=== PATIENT | male | born 1950 | race Caucasian/White ===

== ENCOUNTER 2020-11-08 06:59 | Outpatient (CLI) | payer MEDICARE, SELFPAY ==
--- NOTE | ~2020-11-08 | XR_ITS ---
EXAMINATION: XR lumbar spine 6V w bending EXAM DATE: 11/08/2020 07:35 INDICATION: lumbago pain started 6 days ago no prev back problems. TECHNIQUE: Lumber spine frontal, lateral, bilateral oblique projections. Coned down frontal and lat eral L5-S1 lumbar projections for interpretation. There is no prior study for comparison. FINDINGS: Vertebral bodies are aligned on all the lateral projections. Small to moderate-sized bridgi ng endplate osteophytes. Mild diffuse thoracolumbar disc disease. Vertebral body heights relatively w ell-maintained. Moderate lumbar facet arthropathy. No spondylolysis suspected. There are no acute fra ctures identified. Mild aortic arteriosclerosis. Sacrum, sacroiliac joints, sacral arcuate lines are intact. Paraspinal soft tissue is unremarkable. IMPRESSION: Moderate lumbar facet arthropathy. Mild disc disease. Reviewed, dictated and finalized at location A.
== END 2020-11-08 07:00 | disposition home or self-care (01) ==
PROVIDERS: PCP Physician Assistant; Visit Provider Nurse Practitioner Family
DX: M54.5 Low back pain (principal); M51.36 Other intervertebral disc degeneration, lumbar region
CPT/HCPCS: 72114

== ENCOUNTER 2021-08-13 06:55 | Outpatient (CLI) | payer OTHER, SELFPAY ==
[2021-08-13 07:44] LABS: Add Urine Microscopic? YES; Appearance Urine Clear (Clear); Bilirubin Urine Negative (Negative); Blood Urine Negative (Negative); Color Urine Yellow (Yellow); Glucose Urine UA 3+ mg/dL (Negative); Ketones Urine Trace mg/dL (Negative); Leukocyte Esterase Ur Negative LEU/UL (NEGATIVE); Nitrate Urine Negative (Negative); Protein Urine Negative (Negative); RBC Urine 0-2 /hpf (0-2); Urobilinogen Urine Negative mg/dL (<2.0); WBC Urine 0-3 /hpf (0-3)
[2021-08-13 07:48] LABS: Alanine Aminotransferase 30 U/L (4-50); Albumin Level 4.7 g/dL (3.5-5.1); Alkaline Phosphatase 56 U/L (38-126); Anion Gap 9 mmol/L (8-16); Aspartate Amino Transferase 27 U/L (17-59); Bilirubin,Total 0.9 mg/dL (0.2-1.3); Blood Urea Nitrogen 20 mg/dL (9-20); Calcium 9.3 mg/dL (8.4-10.2); Carbon Dioxide 25 mmol/L (22-30); Chloride 106 mmol/L (98-107); Cholesterol 141 mg/dL (0-200); Estimated Glomerular Filt Rate > 60; Glucose 158 mg/dL (65-110); HDL Direct 38 mg/dL; Potassium 4.4 mmol/L (3.4-5.0); Sodium 140 mmol/L (137-145); Triglycerides 178 mg/dL (<150)
[2021-08-13 07:52] LABS: Specific Grav Ur 1.031 (1.001-1.035)
[2021-08-13 08:00] LABS: LDL Cholesterol Direct 72 mg/dL
[2021-08-13 08:13] LABS: Creatinine Urine 98.3 mg/dL
[2021-08-13 08:18] LABS: Microalbumin Urine Random 38.3 mg/L (0-16.7)
[2021-08-13 08:18] LABS: Prostate Specific Antigen 0.6 ng/mL (< OR = 4.0)
[2021-08-13 08:25] LABS: Hemoglobin A1C 6.6 % (<5.7)
[2021-08-13 08:54] LABS: Folic Acid 8.6 ng/mL (2.76->20)
== END 2021-08-13 06:56 | disposition home or self-care (01) ==
PROVIDERS: PCP Nurse Practitioner Family; Visit Provider Nurse Practitioner Family
DX: E11.65 Type 2 diabetes mellitus with hyperglycemia (principal); I10 Essential (primary) hypertension; E78.5 Hyperlipidemia, unspecified; R35.1 Nocturia; E11.29 Type 2 diabetes mellitus with other diabetic kidney complication; R80.9 Proteinuria, unspecified
CPT/HCPCS: 36415; 80048; 80061; 80076; 81001; 82043; 82607; 82746; 83036; 84153; 84443

== ENCOUNTER 2021-12-26 07:07 | Outpatient (CLI) | payer OTHER, SELFPAY ==
[2021-12-26 07:56] LABS: Creatinine Urine 93.3 mg/dL
[2021-12-26 07:59] LABS: Anion Gap 8 mmol/L (8-16); Blood Urea Nitrogen 24 mg/dL (9-20); Calcium 8.7 mg/dL (8.4-10.2); Carbon Dioxide 20 mmol/L (22-30); Chloride 111 mmol/L (98-107); Cholesterol 141 mg/dL (0-200); Estimated Glomerular Filt Rate > 60; Glucose 165 mg/dL (65-110); HDL Direct 36 mg/dL; Sodium 139 mmol/L (137-145); Triglycerides 205 mg/dL (<150)
[2021-12-26 08:00] LABS: MALB Creatinine Ratio 35.2 mg/g (0-30); Microalbumin Urine Random 32.8 mg/L (0-16.7)
[2021-12-26 08:00] LABS: Hemoglobin A1C 6.9 % (<5.7)
[2021-12-26 08:11] LABS: LDL Cholesterol Direct 66 mg/dL
== END 2021-12-26 07:08 | disposition home or self-care (01) ==
PROVIDERS: PCP Nurse Practitioner Family; Visit Provider Nurse Practitioner Family
DX: I10 Essential (primary) hypertension (principal); R80.9 Proteinuria, unspecified; E11.9 Type 2 diabetes mellitus without complications; E78.5 Hyperlipidemia, unspecified
CPT/HCPCS: 36415; 80048; 80061; 82043; 83036

== ENCOUNTER 2022-08-18 07:04 | Outpatient (CLI) | payer OTHER, SELFPAY ==
[2022-08-18 07:51] LABS: Appearance Urine Clear (Clear); Bilirubin Urine Negative (Negative); Blood Urine Negative (Negative); Color Urine Yellow (Yellow); Glucose Urine UA 3+ mg/dL (Negative); Ketones Urine Negative (Negative); Leukocyte Esterase Ur Negative LEU/UL (NEGATIVE); Nitrate Urine Negative (Negative); Protein Urine Trace mg/dL (Negative); Urobilinogen Urine 0.2 mg/dL (<2.0); pH Urine 5.5 (5.0-9.0)
[2022-08-18 07:56] LABS: Basophils Percent Auto 0.5 % (0.2-1.2); Eosinophils Absolute Auto 0.1 K/mm3 (0-0.3); Eosinophils Percent Auto 1.9 % (0-4.4); Hematocrit 42.8 % (42.0-52.0); Hemoglobin 14.2 g/dL (14.0-18.0); Immature Granulocyte Absolute 0.01 K/mm3 (0.00-0.031); Immature Granulocyte Percent A 0.2 % (0-0.5); Lymphocytes Absolute Auto 2.52 K/mm3 (0.9-3.2); Lymphocytes Percent Auto 39.6 % (18.3-44.2); Mean Corpuscular HGB Conc 33.2 g/dl (32-36); Mean Corpuscular Volume 87.3 fl (80-100); Mean Platelet Volume 9.5 fl (7.4-10.4); Monocytes Absolute Auto 0.7 K/mm3 (0.1-0.6); Monocytes Percent Auto 10.7 % (2.6-8.5); Neutrophils Percent Auto 47.1 % (45.5-73.1); Platelet Count Result 189 k/mm3 (150-375); Red Cell Distribution Width 13.7 % (11.5-14.5); White Blood Count 6.4 K/mm3 (4.5-10.0)
[2022-08-18 07:59] LABS: Bacteria Urine Trace /hpf; Mucus Urine Rare /lpf; WBC Urine 0-3 /hpf (0-3)
[2022-08-18 08:03] LABS: Add Urine Microscopic? YES; Alanine Aminotransferase 32 U/L (6-50); Albumin Level 4.6 g/dL (3.5-5.1); Alkaline Phosphatase 54 U/L (38-126); Anion Gap 11 mmol/L (8-16); Aspartate Amino Transferase 22 U/L (17-59); Bilirubin,Total 0.7 mg/dL (0.2-1.3); Blood Urea Nitrogen 22 mg/dL (9-20); Carbon Dioxide 22 mmol/L (22-30); Chloride 109 mmol/L (98-107); Cholesterol 145 mg/dL (0-200); Estimated Glomerular Filt Rate > 60; Glucose 160 mg/dL (65-110); HDL Direct 37 mg/dL; Potassium 3.9 mmol/L (3.4-5.0); Sodium 142 mmol/L (137-145); Triglycerides 168 mg/dL (<150); Uric Acid 4.7 mg/dL (3.5-8.5)
[2022-08-18 08:14] LABS: LDL Cholesterol Direct 76 mg/dL
[2022-08-18 08:31] LABS: Creatinine Urine 93.1 mg/dL
[2022-08-18 08:32] LABS: Hemoglobin A1C 7.1 % (<5.7)
[2022-08-18 08:33] LABS: Prostate Specific Antigen 0.7 ng/mL (< OR = 4.0)
[2022-08-18 09:03] LABS: Hepatitis C Virus Antibody Negative (Negative)
[2022-08-18 09:09] LABS: Folic Acid 9.8 ng/mL (2.76->20)
== END 2022-08-18 07:05 | disposition home or self-care (01) ==
LOC: ANHLAB 07:08
PROVIDERS: PCP Nurse Practitioner Family; Visit Provider Nurse Practitioner Family
DX: E78.5 Hyperlipidemia, unspecified (principal); E53.8 Deficiency of other specified B group vitamins; I10 Essential (primary) hypertension; R35.1 Nocturia; Z11.59 Encounter for screening for other viral diseases; E11.9 Type 2 diabetes mellitus without complications
CPT/HCPCS: 36415; 80048; 80061; 80076; 81001; 82043; 82607; 82746; 83036; 84153; 84443; 84550; 85025; 86803

== ENCOUNTER 2023-03-01 08:07 | Outpatient (CLI) | payer OTHER, SELFPAY ==
[2023-03-01 09:18] LABS: Appearance Urine Clear (Clear); Bilirubin Urine Negative (Negative); Blood Urine Negative (Negative); Color Urine Yellow (Yellow); Glucose Urine UA 3+ mg/dL (Negative); Ketones Urine Trace mg/dL (Negative); Leukocyte Esterase Ur Negative LEU/UL (NEGATIVE); Nitrate Urine Negative (Negative); Protein Urine Negative (Negative); Specific Grav Ur 1.033 (1.001-1.035); Urobilinogen Urine 0.2 mg/dL (<2.0)
[2023-03-01 09:21] LABS: Add Urine Microscopic? NO
[2023-03-01 09:31] LABS: Anion Gap 11 mmol/L (8-16); Blood Urea Nitrogen 20 mg/dL (9-20); Carbon Dioxide 22 mmol/L (22-30); Chloride 105 mmol/L (98-107); Cholesterol 147 mg/dL (0-200); Estimated Glomerular Filt Rate > 60; Glucose 140 mg/dL (65-110); HDL Direct 37 mg/dL; Potassium 3.8 mmol/L (3.4-5.0); Sodium 138 mmol/L (137-145); Triglycerides 163 mg/dL (<150)
[2023-03-01 09:34] LABS: Hemoglobin A1C 6.6 % (<5.7)
[2023-03-01 09:41] LABS: LDL Cholesterol Direct 77 mg/dL
[2023-03-01 15:32] LABS: Creatinine Urine 88.5 mg/dL
[2023-03-01 15:37] LABS: MALB Creatinine Ratio 42.9 mg/g (0-30)
== END 2023-03-01 08:08 | disposition home or self-care (01) ==
LOC: ANHLAB 08:08
PROVIDERS: PCP Nurse Practitioner Family; Visit Provider Nurse Practitioner Family
DX: E11.65 Type 2 diabetes mellitus with hyperglycemia (principal); I10 Essential (primary) hypertension; E78.5 Hyperlipidemia, unspecified; E11.29 Type 2 diabetes mellitus with other diabetic kidney complication; R80.9 Proteinuria, unspecified
CPT/HCPCS: 36415; 80048; 80061; 81003; 82043; 83036

== ENCOUNTER 2023-09-13 07:07 | Outpatient (CLI) | payer OTHER, SELFPAY ==
[2023-09-13 08:14] LABS: Alanine Aminotransferase 35 U/L (6-50); Albumin Level 4.4 g/dL (3.5-5.1); Alkaline Phosphatase 54 U/L (38-126); Anion Gap 9 mmol/L (8-16); Aspartate Amino Transferase 25 U/L (17-59); Bilirubin,Total 0.7 mg/dL (0.2-1.3); Blood Urea Nitrogen 23 mg/dL (9-20); Calcium 9.2 mg/dL (8.4-10.2); Carbon Dioxide 24 mmol/L (22-30); Chloride 107 mmol/L (98-107); Cholesterol 151 mg/dL (0-200); Estimated Glomerular Filt Rate > 60; Glucose 164 mg/dL (65-110); HDL Direct 38 mg/dL; Potassium 4.1 mmol/L (3.4-5.0); Sodium 140 mmol/L (137-145); Triglycerides 197 mg/dL (<150)
[2023-09-13 08:29] LABS: LDL Cholesterol Direct 89 mg/dL
[2023-09-13 08:36] LABS: Hemoglobin A1C 7.8 % (<5.7)
== END 2023-09-13 07:08 | disposition home or self-care (01) ==
LOC: ANHLAB 07:10
PROVIDERS: PCP Nurse Practitioner Family; Visit Provider Nurse Practitioner Family
DX: I10 Essential (primary) hypertension (principal); E11.9 Type 2 diabetes mellitus without complications; E78.5 Hyperlipidemia, unspecified; Z12.5 Encounter for screening for malignant neoplasm of prostate; E53.8 Deficiency of other specified B group vitamins
CPT/HCPCS: 36415; 80048; 80061; 80076; 82607; 83036; 84153; 84443; G0103

== ENCOUNTER 2024-03-08 07:15 | Outpatient (CLI) | payer OTHER, SELFPAY ==
[2024-03-08 08:32] LABS: Add Urine Microscopic? NO; Appearance Urine Clear (Clear); Bilirubin Urine Negative (Negative); Blood Urine Negative (Negative); Color Urine Yellow (Yellow); Glucose Urine UA 3+ mg/dL (Negative); Ketones Urine Negative (Negative); Leukocyte Esterase Ur Negative LEU/UL (Negative); Nitrate Urine Negative (Negative); Protein Urine Negative (Negative); Specific Grav Ur 1.031 (1.001-1.035); Urobilinogen Urine 0.2 mg/dL (<2.0)
[2024-03-08 08:44] LABS: Hemoglobin A1C 7.2 % (<5.7)
[2024-03-08 09:06] LABS: MALB Creatinine Ratio 33.7 mg/g (0-30); Microalbumin Urine Random 26.3 mg/L (0-16.7)
[2024-03-08 13:54] LABS: Anion Gap 13 mmol/L (4-12); Blood Urea Nitrogen 23 mg/dL (9-20); Calcium 9.4 mg/dL (8.4-10.2); Carbon Dioxide 19 mmol/L (22-30); Chloride 106 mmol/L (98-107); Cholesterol 142 mg/dL (0-200); Estimated Glomerular Filt Rate > 60; Glucose 150 mg/dL (65-110); HDL Direct 39 mg/dL; Potassium 4.1 mmol/L (3.4-5.0); Sodium 138 mmol/L (137-145); Triglycerides 152 mg/dL (<150)
[2024-03-08 14:05] LABS: LDL Cholesterol Direct 78 mg/dL
== END 2024-03-08 07:16 | disposition home or self-care (01) ==
PROVIDERS: PCP Nurse Practitioner Family; Visit Provider Nurse Practitioner Family
DX: I10 Essential (primary) hypertension (principal); E11.9 Type 2 diabetes mellitus without complications; E78.5 Hyperlipidemia, unspecified
CPT/HCPCS: 36415; 80048; 80061; 81003; 82043; 83036

== ENCOUNTER 2024-09-18 06:57 | Outpatient (CLI) | payer OTHER, SELFPAY ==
--- OUTSIDE RECORDS SUMMARY | 2024-09-18 07:01 | XMS_ITS | Clinical Summary ---
Author Organization [facility] Address [address] [place] [id number] Phone Care Team Providers Care Senior Telecommunications Technician Name Role Phone Marilee Ford MD Primary Care Provider [phone] Allergies No known active allergies Medications Medication Sig Dispensed Refills Start Date End Date Status atorvastatin (LIPITOR) 20 MG tablet Take 20 mg by mouth 1 (one) time each day Active lisinopril (PRINIVIL,ZESTRIL) 10 MG tablet Take 10 mg by mouth 1 (one) time each day Active metFORMIN XR (GLUCOPHATE-XR) 500 MG 24 hr tablet 500 mg Take 3 tablets once a day Active Active Problems Problem Noted Date Diagnosed Date Proteinuria Diabetes mellitus Hypertension Hyperlipidemia Immunizations Name Administration Dates Next Due Influenza, Injectable, Quadrivalent 03/21/2019 Pneumococcal Conjugate 13-Valent 05/26/2017 Family History Medical History Relation Comments Diabetes Brother Hypertension Brother Diabetes Father Colon cancer Mother Diabetes Sister Relation Status Comments Brother Father Mother Sister Social History Tobacco Use Types Packs/Day Years Used Date Smoking Tobacco: Never Smokeless Tobacco: Never Alcohol Use Standard Drinks/Week Comments Yes 0 (1 standard drink = 0.6 oz pur e alcohol) 8 drinks a week Sex and Gender Information Value Date Recorded Sex Assigned at Not on file Gender Identity Not on file Sexual Orientation Not on file Last Filed Vital Signs Vital Sign Reading Time Taken Comments Blood Pressure 130/74 05/29/2019 2:13 PM [facility] Pulse - - Temperature 36.3 C (97.3 F) 05/29/2019 2:13 PM [facility] Respiratory Rate 18 05/29/2019 2:13 PM [facility] Oxygen Saturation - - Inhaled Oxygen Concentration - - Weight 112 kg (246 lb) 05/29/2019 2:13 PM [facility] Height 177.8 cm (5' 10 ) 05/29/2019 2:13 PM [facility] Body Mass Index 35.3 05/29/2019 2:13 PM [facility] Plan of Treatment Health Maintenance Due Date Last Done Comments Pneumococcal PPSV23/PCV13 65 + Years / Low and Medium Risk (2 of 3 - PPSV23 or PCV20) 05/26/2018 05/26/2017 Influenza Vaccine (#1) 2024 Care Teams Senior Telecommunications Technician Relationship Specialty Start Date End Date Marilee Ford MD [address] [place] [phone] PCP - General Internal Medicine 01/26/19
[2024-09-18 07:53] LABS: Add Urine Microscopic? NO; Appearance Urine Clear (Clear); Bilirubin Urine Negative (Negative); Blood Urine Negative (Negative); Color Urine Yellow (Yellow); Glucose Urine UA 3+ mg/dL (Negative); Ketones Urine 1+ mg/dL (Negative); Leukocyte Esterase Ur Negative LEU/UL (Negative); Nitrate Urine Negative (Negative); Protein Urine Negative (Negative); Urobilinogen Urine 0.2 mg/dL (<2.0)
[2024-09-18 09:21] LABS: Alanine Aminotransferase 29 U/L (6-50); Albumin Level 4.8 g/dL (3.5-5.1); Alkaline Phosphatase 65 U/L (38-126); Anion Gap 13 mmol/L (4-12); Aspartate Amino Transferase 25 U/L (17-59); Bilirubin,Total 1.1 mg/dL (0.2-1.3); Blood Urea Nitrogen 23 mg/dL (9-20); Calcium 9.4 mg/dL (8.4-10.2); Carbon Dioxide 23 mmol/L (22-30); Chloride 103 mmol/L (98-107); Cholesterol 131 mg/dL (0-200); Estimated Glomerular Filt Rate > 60; Glucose 121 mg/dL (65-110); HDL Direct 41 mg/dL; Potassium 4.1 mmol/L (3.4-5.0); Sodium 139 mmol/L (137-145); Triglycerides 136 mg/dL (<150)
[2024-09-18 09:25] LABS: Hemoglobin A1C 6.4 % (<5.7)
[2024-09-18 09:32] LABS: LDL Cholesterol Direct 58 mg/dL
[2024-09-18 09:49] LABS: Prostate Specific Antigen 0.9 ng/mL (< OR = 4.0)
== END 2024-09-18 06:58 | disposition home or self-care (01) ==
PROVIDERS: PCP Nurse Practitioner Family; Visit Provider Nurse Practitioner Family
DX: E11.65 Type 2 diabetes mellitus with hyperglycemia (principal); I10 Essential (primary) hypertension; E78.5 Hyperlipidemia, unspecified; E53.8 Deficiency of other specified B group vitamins; Z12.5 Encounter for screening for malignant neoplasm of prostate
CPT/HCPCS: 36415; 80053; 80061; 81003; 82607; 83036; 84153; 84443; G0103

== ENCOUNTER 2025-03-26 08:35 | Outpatient (CLI) | payer OTHER, SELFPAY ==
--- OUTSIDE RECORDS SUMMARY | 2025-03-26 09:03 | XMS_ITS | Clinical Summary ---
Author Organization [facility] Address [address] [place] [id number] Phone Care Team Providers Care Bridge Rigger Name Role Phone Marilee Ford MD Primary Care Provider Allergies No known active allergies Medications atorvastatin (LIPITOR) 20 MG tablet Take 20 mg by mouth 1 (one) time each day Active lisinopril (PRINIVIL,ZESTR [place]) 10 MG tablet Take 10 mg by mouth 1 (one) time each day Active metFORMIN XR (GLUCOPHATE-XR) 500 MG 24 hr tablet 500 mg Take 3 tablets once a day Active Active Problems Problem Noted Date Diagnosed Date Proteinuria Diabetes mellitus Hypertension Hyperlipidemia Immunizations Immunization Administration Dates Next Due Influenza, Injectable, Quadrivalent [...] Recorded Sex Assigned at Not on file Legal Sex Male 1:16 PM MDT Gender Identity Not on file Sexual Orientation Not on file Last Filed Vital Signs Vital Sign Reading Time Taken Comments Blood Pressure 130/74 05/29/2019 2:13 PM DIRECTOR OF TEENAGE ACTIVITIES Pulse - - Temperature 36.3 C (97.3 F) 05/29/2019 2:13 PM [employer]OR OF [employer]EENAGE [employer]IVITIES Respiratory Rate 18 05/29/2019 2:13 PM [employer]EENAGE [employer]IV[employer]IES Oxygen Saturation - - Inhaled Oxygen Concentration - - Weight 112 kg (246 lb) 05/29/2019 2:13 PM [employer]EENAGE [employer]IVITIES Height 177.8 cm (5' 10) 05/29/2019 2:13 PM [employer]EENAGE [employer]IV[employer] Body Mass Index 35.3 05/29/2019 2:13 PM DIRECTOR OF TEENAGE ACTIVITIES Plan of Treatment Health Maintenance Due Date Last Done Comments Pneumococcal PPSV23/PCV13 65 + Years / Low and Medium Risk (2 of 3 - PCV20 or PCV21) 05/26/2018 05/26/2017 Influenza Vaccine (#1) 2025 Insurance MEDICARE [facility] Care Teams Bridge Rigger Relationship Specialty Start Date End Date Marilee Ford MD [address] [place] [phone] PCP - General Internal Medicine 01/26/19
[2025-03-26 09:59] LABS: Hematocrit 41.5 % (42.0-52.0); Hemoglobin 13.9 g/dL (14.0-18.0); Immature Granulocyte Percent A 0.2 % (0-0.5); Lymphocytes Absolute Auto 1.99 K/mm3 (0.9-3.2); Mean Corpuscular HGB Conc 33.5 g/dl (32-36); Mean Corpuscular Hemoglobin 29.6 pg (26-34); Mean Corpuscular Volume 88.5 fl (80-100); Nucleated Red Blood Cells Absolute Auto 0.000 K/mm3 (0.0-0.012); Nucleated Red Blood Cells Perc 0.0 % (0.0-0.2); Platelet Count Result 177 k/mm3 (150-375); Red Blood Count 4.69 M/mm3 (4.6-6.20); White Blood Count 5.4 K/mm3 (4.5-10.0)
[2025-03-26 10:20] LABS: MALB Creatinine Ratio 29.7 mg/g (0-30)
[2025-03-26 10:22] LABS: Alanine Aminotransferase 24 U/L (6-50); Albumin Level 4.2 g/dL (3.5-5.1); Alkaline Phosphatase 65 U/L (38-126); Anion Gap 10 mmol/L (4-12); Aspartate Amino Transferase 27 U/L (17-59); Bilirubin,Total 0.8 mg/dL (0.2-1.3); Blood Urea Nitrogen 22 mg/dL (9-20); Calcium 9.1 mg/dL (8.4-10.2); Carbon Dioxide 21 mmol/L (22-30); Chloride 104 mmol/L (98-107); Cholesterol 117 mg/dL (0-200); Estimated Glomerular Filt Rate > 60; Glucose 216 mg/dL (65-110); HDL Direct 34 mg/dL; Potassium 3.9 mmol/L (3.4-5.0); Sodium 135 mmol/L (137-145); Total Protein 7.4 g/dL (6.3-8.2); Triglycerides 155 mg/dL (<150)
[2025-03-26 10:36] LABS: Hemoglobin A1C 6.6 % (<5.7)
== END 2025-03-26 08:36 | disposition home or self-care (01) ==
PROVIDERS: PCP Nurse Practitioner Family; Visit Provider Nurse Practitioner Family
DX: E11.29 Type 2 diabetes mellitus with other diabetic kidney complication (principal); R80.9 Proteinuria, unspecified; I10 Essential (primary) hypertension; E78.5 Hyperlipidemia, unspecified
CPT/HCPCS: 36415; 80053; 80061; 82043; 83036; 85025